=== PATIENT | male | born 1980 | race African-American/Black ===

== ENCOUNTER 2016-07-27 00:42 | Emergency (ER) | payer OTHER ==
[~2016-07-27] VITALS: Ht 177.8 cm; Wt 71.0 kg
[~2016-07-27 00:42] MED LIST: ZYPR15TA PO
[2016-07-27 01:15] VITALS: BP 131/58; PULSE 98; RESP 18; TEMP 98.5; O2SAT 98
--- NOTE | 2016-07-27 01:41 | PD ---
HPI Chief Complaint: Alcohol/Drug Intoxication Time Seen by Provider: 01:38 Travel History International Travel<30 days: No Contact w/Intl Traveler<30days: No Traveled to known affect area: No History of Present Illness HPI 35-year-old black male presents emergency Department under [place] act by PD. The patient was found intoxicated and unable to care for himself. He is placed under [place] act to ensure patient's safety. He is brought to the ER for medical care during his intoxicated state. The patient here is too intoxicated to give any meaningful history. [facility] Past Medical History Narrative Medical Medical history through review the medical records Anxiety: Yes Depression: Yes Diabetes: No Diminished Hearing: No Genitourinary: Yes Musculoskeletal: Yes ("muscle aches") Psychiatric: Yes Immunizations Current: No Schizophrenia: Yes Past Surgical History Other Surgery: Yes ("ANAL WART FREEZING" 01/27) Social History Alcohol Use: Yes (heavy) Tobacco Use: Yes (1 PPD) Substance Use: No Allergies-Medications (Allergen,Severity, Reaction): Coded Allergies: Penicillin (Verified Allergy, Unknown, UNKNOWN REACTION, 07/27/16) Reported Meds & Prescriptions Reported Meds & Active Scripts Active Reported Zyprexa (Olanzapine) 15 Mg Tab 15 Mg PO HS Review of Systems ROS Limitations: Intoxication Except as stated in HPI: all other systems reviewed are Neg Physical Exam Narrative GENERAL: Well-nourished, well-developed patient. Slurred speech and appears intoxicated. Ataxic gait. SKIN: Warm and dry. HEAD: Normocephalic and atraumatic. EYES: No scleral icterus. No injection or drainage. ENT: No nasal drainage noted. Mucous membranes pink. Airway patent. NECK: Supple, trachea midline. Moves head freely without obvious discomfort. CARDIOVASCULAR: Regular rate and rhythm without murmurs, gallops, or rubs. RESPIRATORY: Breath sounds equal bilaterally. No accessory muscle use. GASTROINTESTINAL: Abdomen soft, non-tender, nondistended. EXTREMITIES: No cyanosis or edema. BACK: Nontender without obvious deformity. No CVA tenderness. NEURO: Patient is alert and oriented to person only. no sensorimotor deficits. Nonfocal. Slurred speech. PSYCH: No delusions. No auditory or visual hallucinations. Data Data Last Documented VS Vital Signs Date Time Temp Pulse Resp B/P Pulse Ox O2 Delivery O2 Flow Rate FiO2 07/27/16 01:15 98.5 98 18 131/58 98 MDM Medical Decision Making Medical Screen Exam Complete: Yes Emergency Medical Condition: Yes Medical Record Reviewed: Yes Differential Diagnosis Differential diagnoses: Alcohol intoxication, substance abuse, electrolyte abnormality, malingering Narrative Course The patient is here under [place] act. Once the patient's elizabeth up and exhibits sobriety he'll be consider medically cleared and is [place] act will be lifted. This is alcohol intoxication, [place] act-lifted Diagnosis Primary Impression: Alcohol intoxication Qualified Code: F10.920 - Alcohol intoxication, uncomplicated Additional Impression: [place] act-lifted Patient Instructions: General Instructions Additional Instructions: Rest. Increase fluids. Avoid alcohol. Avoid illegal substances. Follow-up with Ch[facility] Guan for detox. Do not operate a car or any heavy machinery under the influence of alcohol or drugs. Follow-up with a medical doctor this week. Return to the ER for emergencies Disposition: 01 DISCHARGE HOME Condition: Stable Willem Thompson July 27, 2016 01:41
[2016-07-27 05:00] VITALS: BP 131/58; PULSE 88; RESP 18; O2SAT 98
== END 2016-07-27 06:56 | disposition home or self-care (01) ==
LOC: NEPD 00:42
DX: F10.129 Alcohol abuse with intoxication, unspecified (principal); F41.9 Anxiety disorder, unspecified; F32.9 Major depressive disorder, single episode, unspecified; F20.9 Schizophrenia, unspecified; F17.200 Nicotine dependence, unspecified, uncomplicated
CPT/HCPCS: 99284